=== PATIENT | female | born 1940 | race Caucasian/White ===

== ENCOUNTER 2019-02-19 09:45 | Emergency (ER) | payer MEDICARE, SELFPAY ==
[2019-02-19 09:46] VITALS: BP 160/80; PULSE 82; RESP 14; TEMP 36.4; O2SAT 99
--- NOTE | 2019-02-19 09:57 | DI.RAD.S_ITS ---
PROCEDURE: XR FOOT RT MIN 3V INDICATIONS: fall, pain bottom of right foot and right heel. TECHNIQUE: 3 views of the foot were acquired. COMPARISON: None. FINDINGS: Bones: Subtle radiolucency is present at the proximal fifth metatarsal. No definite cortical disruption visualized. No suspicious bony lesions. Moderate degenerative changes are present at the first MTP joint. A small erosive lesion is present at the distal aspect of the first metatarsal. Soft tissues: No tibiotalar joint effusion. Achilles tendon appears normal. IMPRESSION: 1. Subtle radiolucency at the base of the fifth metatarsal which likely represents a vascular groove or overlying skin fold, although nondisplaced fracture could also be considered in the differential. Please correlate with point tenderness. 2. Degenerative changes at the first MTP joint. Subtle bony erosion may be secondary to subchondral cystic changes or erosive arthritis such as gout. Dictated by: Carlie Rendon M.D. on 02/19/2019 at 9:38 Approved by: Carlie Rendon M.D. on 02/19/2019 at 9:40
[2019-02-19 10:06] VITALS: PULSE 80
--- NOTE | 2019-02-19 11:08 | ED.LOWEXIN ---
HPI - Extremity Injury (Lower) <Katlyn Gomez PA-C - Last Filed: 02/19/19 16:33> General Chief Complaint: Extremity Injury, Lower Stated Complaint: right foot pain / heel pain Time Seen by Provider: 02/19/19 11:06 Source: patient Mode of arrival: wheelchair Limitations: no limitations History of Present Illness HPI Narrative: This 78-year-old female comes to ED secondary to fall from doorway, mainly has pain in her right foot. She states that she was backing out while turning, reaching for a partial, and tripped falling down the 3 steps. She believe she hit her foot, fell on her low back in hit her neck and head on the ground/dirt. She states she did pass out, she thinks briefly as her was on the other side of the RV, and she remembers him talking to her. She states that she did have some nausea initially which is better now after eating and taking her medicines. She denies any vision change. She denies any headache. She has not noted any bumps or wounds on her scalp. She states that she feels somewhat sore all over in her neck and back, does not think any localized pain. She denies any weakness or numbness in her extremities aside from pain/feeling more weak in the right foot where she is hurting. She states pain is much worse with any pressure or trying to walk on the right foot. She denies pain in other joints. She notes that she had another fall a couple of weeks ago and there is a residual bruise under her right eye. She denies any chest pain, dyspnea, other new symptoms prior to this fall today. Related Data Previous Rx's Medication Instructions Recorded hydrocodone-acetaminophen [[place]] 1 tab PO Q6H PRN #10 tab 02/19/19 knee scooter #1 ea 02/19/19 Allergies Allergy/AdvReac Type Severity Reaction Status Date / Time antibiotic- can't remember Allergy Intermediate Hives Uncoded 02/19/19 09:50 name Review of Systems <FLORES Arizmendi Last Filed: 02/19/19 16:33> Review of Systems ROS Unobtainable: All systems reviewed & are unremarkable except as noted in HPI and below PFSH <FLORES Arizmendi Last Filed: 02/19/19 16:33> Medical History (Updated 02/19/19 @ 12:24 by Katlyn Gomez PA-C) Diabetes mellitus type II, non insulin dependent (Chronic) Hyperlipidemia (Chronic) HTN (hypertension) (Chronic) CAD (coronary artery disease) (Chronic) Surgical History (Updated 02/19/19 @ 11:29 by Katlyn Gomez PA-C) History of heart artery stent (Resolved) Status post aorto-coronary artery bypass graft (Resolved) Social History Smoking Status: Never smoker Social History Smoking Status: Never smoker Exam <Katlyn Gomez PA-C - Last Filed: 02/19/19 16:33> Narrative Exam Narrative: GENERAL APPEARANCE: Patient sitting comfortably, in no distress. HEENT: No scalp wound or hematoma, PERRL, EOMI, normal TMs and oropharynx NECK: Supple LUNGS: Clear to auscultation bilaterally. HEART: Rate and rhythm regular without murmur, normal S1 and S2, no S3 or S4. NEUROLOGIC: Alert and oriented, normal speech, and coordination. Sensation grossly intact throughout the extremities MUSCULOSKELETAL: Moderate tenderness over the mid cervical spine as well as throughout the paraspinal musculature bilaterally. Full active cervical spine range of motion. C-collar placed. No tenderness over the thoracolumbar spine. Full range of motion of the upper extremities without tenderness. No tenderness over the hips or lower extremities aside from the right 5th metatarsal base to mid. No tenderness over the toes, able to plantar and dorsiflex against resistance VASCULAR: Bilateral feet are warm and pink with brisk cap refill. Trace edema bilaterally DERMATOLOGIC: Single patch of faded right infraorbital ecchymoses, no ecchymoses or abrasions elsewhere Initial Vital Signs Initial Vital Signs: Vital Signs Temperature 97.5 F L 02/19/19 09:46 Pulse Rate 82 02/19/19 09:46 Respiratory Rate 14 02/19/19 09:46 Blood Pressure 160/80 H 02/19/19 09:46 Pulse Oximetry 99 02/19/19 09:46 <Tonya Handley DO - Last Filed: 02/22/19 09:01> Initial Vital Signs Initial Vital Signs: Vital Signs Temperature 97.5 F L 02/19/19 09:46 Pulse Rate 82 02/19/19 09:46 Respiratory Rate 14 02/19/19 09:46 Blood Pressure 160/80 H 02/19/19 09:46 Pulse Oximetry 99 02/19/19 09:46 Course <FLORES Arizmendi Last Filed: 02/19/19 16:33> Orders Ordered: ED Orders 02/19/19 09:57 XR foot RT min 3V Stat 02/19/19 11:21 CT cervical spine wo con Stat CT head/brain wo con Stat 02/19/19 12:06 Urine Culture Stat Urine Microscopic Stat Vital Signs - 8 hr 02/19/19 09:46 02/19/19 10:06 02/19/19 12:16 Temperature 97.5 F L Pulse Rate 82 88 Pulse Rate [Right Dorsalis Pedis] 80 Respiratory Rate 14 20 Blood Pressure 160/80 H Blood Pressure [Right Arm] 156/75 H Pulse Oximetry 99 98 <Tonya Handley DO - Last Filed: 02/22/19 09:01> Orders Ordered: ED Orders 02/19/19 09:57 XR foot RT min 3V Stat 02/19/19 11:21 CT cervical spine wo con Stat CT head/brain wo con Stat 02/19/19 12:06 Urine Culture Stat Urine Microscopic Stat Vital Signs - 8 hr 02/19/19 09:46 02/19/19 10:06 02/19/19 12:16 Temperature 97.5 F L Pulse Rate 82 88 Pulse Rate [Right Dorsalis Pedis] 80 Respiratory Rate 14 20 Blood Pressure 160/80 H Blood Pressure [Right Arm] 156/75 H Pulse Oximetry 99 98 MDM - Extremity Injury (Lower) <FLORES Arizmendi Last Filed: 02/19/19 16:33> Lab Data Lab Results 02/19/19 Range/Units 12:06 Urine RBC 1-5/hpf (0-5/HPF) Urine WBC 1-5/hpf (0-5/HPF) Ur Squamous Epith Cells 1-5 /hpf (0-5/HPF) Urine Bacteria None seen (None) Ur Culture Indicated? Specimen cultured Urine Dip Bedside Urine Glucose Negative Bedside Urine Bilirubin + 1 Bedside Urine Ketone +/- 5 Urine Specific [place] 1.025 Bedside Urine Occult Blood +/- Bedside Urine pH 6.0 Bedside Urine Protein +++ 300 Bedside Urine Urobilinogen +/- 1mg Bedside Urine Nitrite - Negative Bedside Urine Leukocytes +/- 15 Esterase Imaging Data foot: Radiologist's impression: [address] [address] XRay Report Signed Patient: Woody Crystal#: [id number] : 1Acct:[id number] Age/Sex: 78 / FDate of Service: 02/19/19 Loc: ED Accession Number: [id number] Procedure: XR foot RT min 3V Ordering Provider: Tonya Handley D.O. PROCEDURE: XR FOOT RT MIN 3V INDICATIONS: fall, pain bottom of right foot and right heel. TECHNIQUE: 3 views of the foot were acquired. COMPARISON: None. FINDINGS: Bones: Subtle radiolucency is present at the proximal fifth metatarsal. No definite cortical disruption visualized. No suspicious bony lesions. Moderate degenerative changes are present at the first MTP joint. A small erosive lesion is present at the distal aspect of the first metatarsal. Soft tissues: No tibiotalar joint effusion. Achilles tendon appears normal. IMPRESSION: 1. Subtle radiolucency at the base of the fifth metatarsal which likely represents a vascular groove or overlying skin fold, although nondisplaced fracture could also be considered in the differential. Please correlate with point tenderness. 2. Degenerative changes at the first MTP joint. Subtle bony erosion may be secondary to subchondral cystic changes or erosive arthritis such as gout. Dictated by: Carlie Rendon M.D. on 02/19/2019 at 9:38 Approved by: Carlie Rendon M.D. on 02/19/2019 at 9:40 CT scan - head: Radiologist's impression: [address] [address] [address] Scan Report Signed Patient: Woody Crystal#: [id number] : 1Acct:[id number] Age/Sex: 78 / FDate of Service: 02/19/19 Loc: ED Accession Number: [id number] Procedure: CT head/brain wo con Ordering Provider: Fishfader,Katlyn P.A-C PROCEDURE: CT HEAD/BRAIN WO CON INDICATIONS: fall, LOC, on ASA, plavix TECHNIQUE: Noncontrast 4.5 mm thick angled axial sections acquired from the foramen magnum to the vertex, with coronal and sagittal reformats. For radiation dose reduction, the following was used: automated exposure control, adjustment of mA and/or kV according to patient size. COMPARISON: None. FINDINGS: Image quality: Excellent. CSF spaces: Basal cisterns are patent. No extra-axial fluid collections. The ventricles are symmetric in size and shape. Brain: No intracranial bleeds or masses. Encephalomalacia is present within the left cerebellar hemisphere consistent with prior infarct. A small lacunar infarct is present within the external capsule of the left basal ganglia. There is cerebral volume loss for age, with resultant ventricular and sulcal prominence. There are marked periventricular and deep white matter chronic small vessel ischemic changes. There is intracranial internal carotid artery atherosclerosis. Skull and face: Calvarium and visualized facial bones appear intact, without suspicious lesions. Sinuses: Visualized sinuses and mastoids are clear. IMPRESSION: 1. No acute intracranial findings. 2. 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 Dictated by: Carlie Rendon M.D. on 02/19/2019 at 10:51 Approved by: Calrie Rendon M.D. on 02/19/2019 at 10:57 Csp: Radiologist's impression: [place] [address] CT Scan Report Signed Patient: Woody Crystal#: [id number] : 1Acct:[id number] Age/Sex: 78 / FDate of Service: 02/19/19 Loc: ED Accession Number: [id number] Procedure: CT cervical spine wo con Ordering Provider: Katlyn Gomez P.A-C PROCEDURE: CT CERVICAL SPINE WO CON INDICATIONS: pain, s/p fall TECHNIQUE: Noncontrast 3 mm thick sections acquired from the skull base to the T4 level. Sagittal and coronal reformats were then constructed. For radiation dose reduction, the following was used: automated exposure control, adjustment of mA and/or kV according to patient size. COMPARISON: None. FINDINGS: Image quality: Excellent. Bones: No fractures or dislocations. Visualized superior ribs are intact. Soft tissues: Prevertebral soft tissues are normal in thickness. No paravertebral hematomas. No apical pneumothoraces. Scattered atheromatous calcifications are present within the aortic arch. There is a left hypodense thyroid nodule. IMPRESSION: 1. No acute cervical spine injury. 2. Left thyroid nodule which is incompletely characterized. Nonemergent thyroid ultrasound could be used to further characterize this finding if clinically indicated. Dictated by: Carlie Rendon M.D. on 02/19/2019 at 10:58 Approved by: Carlie Rendon M.D. on 02/19/2019 at 11:00 <Tonya Handley DO - Last Filed: 02/22/19 09:01> Lab Data Lab Results 02/19/19 Range/Units 12:06 Urine RBC 1-5/hpf (0-5/HPF) Urine WBC 1-5/hpf (0-5/HPF) Ur Squamous Epith Cells 1-5 /hpf (0-5/HPF) Urine Bacteria None seen (None) Ur Culture Indicated? Specimen cultured Urine Dip Bedside Urine Glucose Negative Bedside Urine Bilirubin + 1 Bedside Urine Ketone +/- 5 Urine Specific [place] 1.025 Bedside Urine Occult Blood +/- Bedside Urine pH 6.0 Bedside Urine Protein +++ 300 Bedside Urine Urobilinogen +/- 1mg Bedside Urine Nitrite - Negative Bedside Urine Leukocytes +/- 15 Esterase Discharge Plan Departure Patient Disposition: Home Clinical Impression: Metatarsal fracture Qualifiers: Encounter type: initial encounter Metatarsal bone: fifth Fracture type: closed Fracture alignment: nondisplaced Laterality: right Qualified Code(s): S92.354A - Nondisplaced fracture of fifth metatarsal bone, right foot, initial encounter for closed fracture Concussion Qualifiers: Encounter type: initial encounter Loss of consciousness presence/duration: with LOC of 30 min or less Qualified Code(s): S06.0X1A - Concussion with loss of consciousness of 30 minutes or less, initial encounter Discharge Date/Time: 02/19/19 13:12 Interventions: ED Discharge Assessment Last Done: 02/19/19 13:11 Instructions: DI for Concussion, DI for Foot Fracture Activity Restrictions/Additional Instructions: Please rest, elevate your foot. You should not be bearing weight on your foot at all. There was some abnormality on your x-ray, unclear whether there was a fracture, however it is in the area where you have tenderness so I suspect this may be a subtle break in the bone. Since you were not able to use the walking boot, we have wrapped your foot, and you can use a knee scooter since you prefer that over crutches. Do not bear weight on the foot at all, and wearing a stiff-soled shoe when you are out and about in case you do accidentally put weight on it. You should follow-up with a primary care provider here in the next couple of weeks to assess your progress and repeat x-rays to assess healing. I have given you some hydrocodone/acetaminophen to use for pain as needed for the next couple of days (do not drive as this could make you sleepy). And then you can change to Tylenol as needed. You also have a concussion from your head contusion. Your imaging studies did not show any acute injury. Please rest in a quiet environment for the next few days, avoid lots of bright lights/screen time, noisy surroundings, or ?brain work?. You should return to ED as we talked about if you have any acute changes such as severe headache, vomiting, vision change, etc. You should also follow up on your CT scans with your PCP when you return to [place], i.e. to review whether the thyroid nodule noted coincidentally on the scan was new or whether it has been seen in the past on your previous studies. We have given you a copy of all of your radiology studies on CD to take to [place] with you. In the interim, please call the [facility] resource specialist here at [phone], and let them know that you were seen here in the emergency room and need to arrange follow-up for your visit Prescriptions: New hydrocodone-acetaminophen [[place]] 5-325 mg tablet 1 tab PO Q6H PRN (Reason: foot fracture pain) Qty: 10 RF: 0 knee scooter Qty: 1 RF: 0 Referrals: [facility] [Other] <Tonya Handley DO - Last Filed: 02/22/19 09:01> Cosign ED Attending Isatuature Attestation: I was immediately available in the department for consultation. This documentation has been reviewed and I agree with assessment and plan. Supervised by Tonya Handley DO
--- NOTE | 2019-02-19 11:23 | ED_ITS ---
HPI - Extremity Injury (Lower) <FLORES Arizmendi Last Filed: 02/19/19 16:33> General Chief Complaint: Extremity Injury, Lower Stated Complaint: right foot pain / heel pain Time Seen by Provider: 02/19/19 11:06 Source: patient Mode of arrival: wheelchair Limitations: no limitations History of Present Illness HPI Narrative: This 78-year-old female comes to ED secondary to fall from doorway, mainly has pain in her right foot. She states that she was backing out while turning, reaching for a partial, and tripped falling down the 3 steps. She believe she hit her foot, fell on her low back in hit her neck and head on the ground/dirt. She states she did pass out, she thinks briefly as her was on the other side of the RV, and she remembers him talking to her. She stat es that she did have some nausea initially which is better now after eating and taking her medicines. She denies any vision change. She denies any headache. She has not noted any bumps or wounds on her scalp. She states that she feels somewhat sore all over in her neck and back, does not think any localized pain. She denies any weakness or numbness in her extremities aside from pain/feeling m ore weak in the right foot where she is hurting. She states pain is much worse with any pressure or trying to walk on the right foot. She denies pain in other joints. She notes that she had another fall a couple of weeks ago and there is a residual bruise under her right eye. She denies any chest pain, dyspnea, other new symptoms prior to this fall today. Related Data Previous Rx's Medication Instructions Recorded hydrocodone-acetaminophen [[place]] 1 tab PO Q6H PRN #10 tab 02/19/19 knee scooter #1 ea 02/19/19 Allergies Allergy/AdvReac Type Severity Reaction Status Date / Time antibiotic- can't remember Allergy Intermediate Hives Uncoded 02/19/19 09:50 name Review of Systems <FLORES Arizmendi Last Filed: 02/19/19 16:33> Review of Systems ROS Unobtainable: All systems reviewed & are unremarkable except as noted in HPI and below PFSH <FLORES Arizmendi Last Filed: 02/19/19 16:33> Medical History (Updated 02/19/19 @ 12:24 by Katlyn Gomez PA-C) Diabetes mellitus type II, non insulin dependent (Chronic) Hyperlipidemia (Chronic) HTN (hypertension) (Chronic) CAD (coronary artery disease) (Chronic) Surgical History (Updated 02/19/19 @ 11:29 by Katlyn Gomez PA-C) History of heart artery stent (Resolved) Status post aorto-coronary artery bypass graft (Resolved) Social History Smoking Status: Never smoker Social History Smoking Status: Never smoker Exam <Katlyn Gomez PA-C - Last Filed: 02/19/19 16:33> Narrative Exam Narrative: GENERAL APPEARANCE: Patient sitting comfortably, in no distress. HEENT: No scalp wound or hematoma, PERRL, EOMI, normal TMs and oropharynx NECK: Supple LUNGS: Clear to auscultation bilaterally. HEART: Rate and rhythm regular without murmur, normal S1 and S2, no S3 or S4. NEUROLOGIC: Alert and oriented, normal speech, and coordination. Sensation grossly intact throughout the extremities MUSCULOSKELETAL: Moderate tenderness over the mid cervical spine as well as throughout the paraspinal musculature bilaterally. Full active cervical spine range of motion. C-collar placed. No tenderness over the thoracolumbar spine. Full range of motion of the upper extremities without tenderness. No tenderness over the hips or lower extremities aside from the right 5th metatarsal base to mid. No tenderness over the toes, able to plantar and dorsiflex against resistance VASCULAR: Bilateral feet are warm and pink with brisk cap refill. Trace edema bilaterally DERMATOLOGIC: Single patch of faded right infraorbital ecchymoses, no ecchymoses or abrasions elsewhere Initial Vital Signs Initial Vital Signs: Vital Signs Temperature 97.5 F L 02/19/19 09:46 Pulse Rate 82 02/19/19 09:46 Respiratory Rate 14 02/19/19 09:46 Blood Pressure 160/80 H 02/19/19 09:46 Pulse Oximetry 99 02/19/19 09:46 <Tonya Handley DO - Last Filed: 02/22/19 09:01> Initial Vital Signs Initial Vital Signs: Vital Signs Temperature 97.5 F L 02/19/19 09:46 Pulse Rate 82 02/19/19 09:46 Respiratory Rate 14 02/19/19 09:46 Blood Pressure 160/80 H 02/19/19 09:46 Pulse Oximetry 99 02/19/19 09:46 Course <FLORES Arizmendi Last Filed: 02/19/19 16:33> Orders Ordered: ED Orders 02/19/19 09:57 XR foot RT min 3V Stat 02/19/19 11:21 CT cervical spine wo con Stat CT head/brain wo con Stat 02/19/19 12:06 Urine Culture Stat Urine Microscopic Stat Vital Signs - 8 hr 02/19/19 09:46 02/19/19 10:06 02/19/19 12:16 Temperature 97.5 F L Pulse Rate 82 88 Pulse Rate [Right Dorsalis Pedis] 80 Respiratory Rate 14 20 Blood Pressure 160/80 H Blood Pressure [Right Arm] 156/75 H Pulse Oximetry 99 98 <Tonya Handley DO - Last Filed: 02/22/19 09:01> Orders Ordered: ED Orders 02/19/19 09:57 XR foot RT min 3V Stat 02/19/19 11:21 CT cervical spine wo con Stat CT head/brain wo con Stat 02/19/19 12:06 Urine Culture Stat Urine Microscopic Stat Vital Signs - 8 hr 02/19/19 09:46 02/19/19 10:06 02/19/19 12:16 Temperature 97.5 F L Pulse Rate 82 88 Pulse Rate [Right Dorsalis Pedis] 80 Respiratory Rate 14 20 Blood Pressure 160/80 H Blood Pressure [Right Arm] 156/75 H Pulse Oximetry 99 98 MDM - Extremity Injury (Lower) <FLORES Arizmendi Last Filed: 02/19/19 16:33> Lab Data Lab Results 02/19/19 Range/Units 12:06 Urine RBC 1-5/hpf (0-5/HPF) Urine WBC 1-5/hpf (0-5/HPF) Ur Squamous Epith Cells 1-5 /hpf (0-5/HPF) Urine Bacteria None seen (None) Ur Culture Indicated? Specimen cultured Urine Dip Bedside Urine Glucose Negative Bedside Urine Bilirubin + 1 Bedside Urine Ketone +/- 5 Urine Specific [place] 1.025 Bedside Urine Occult Blood +/- Bedside Urine pH 6.0 Bedside Urine Protein +++ 300 Bedside Urine Urobilinogen +/- 1mg Bedside Urine Nitrite - Negative Bedside Urine Leukocytes +/- 15 Esterase Imaging Data foot: Radiologist's impression: [address] [address] XRay Report Signed Patient: Woody Crystal#: [id number] : [id number]:[id number] Age/Sex: 78 / FDate of Service: 02/19/19 Loc: ED Accession Number: [id number] Procedure: XR foot RT min 3V Ordering Provider: Tonya Handley D.O. PROCEDURE: XR FOOT RT MIN 3V INDICATIONS: fall, pain bottom of right foot and right heel. TECHNIQUE: 3 views of the foot were acquired. COMPARISON: None. FINDINGS: Bones: Subtle radiolucency is present at the proximal fifth metatarsal. No definite cortical disruption visualized. No suspicious bony lesions. Moderate degenerative changes are present at the first MTP joint. A small erosive lesion is present at the distal aspect of the first metatarsal. Soft tissues: No tibiotalar joint effusion. Achilles tendon appears normal. IMPRESSION: 1. Subtle radiolucency at the base of the fifth metatarsal which likely represents a vascular groove or overlying skin fold, although nondisplaced fracture could also be considered in the differential. Please correlate with point tenderness. 2. Degenerative changes at the first MTP joint. Subtle bony erosion may be secondary to subchondral cystic changes or erosive arthritis such as gout. Dictated by: Carlie Rendon M.D. on 02/19/2019 at 9:38 Approved by: Carlie Rendon M.D. on 02/19/2019 at 9:40 CT scan - head: Radiologist's impression: [address] [address] [address] Scan Report Signed Patient: Woody Crystal#: [id number] : [id number] Age/Sex: 78 / FDate of Service: 02/19/19 Loc: ED Accession Number: [id number] Procedure: CT head/brain wo con Ordering Provider: Katlyn Gomez P.A-C PROCEDURE: CT HEAD/BRAIN WO CON INDICATIONS: fall, LOC, on ASA, plavix TECHNIQUE: Noncontrast 4.5 mm thick angled axial sections acquired from the foramen magnum to the vertex, with coronal and sagittal reformats. For radiation dose reduction, the following was used: automated exposure control, adjustment of mA and/or kV according to patient size. COMPARISON: None. FINDINGS: Image quality: Excellent. CSF spaces: Basal cisterns are patent. No extra-axial fluid collections. The ventricles are symmetric in size and shape. Brain: No intracranial bleeds or masses. Encephalomalacia is present within the left cerebellar hemisphere consistent with prior infarct. A small lacunar infarct is present within the external capsule of the left basal ganglia. There is cerebral volume loss for age, with resultant ventricular and sulcal prominence. There are marked periventricular and deep white matter chronic small vessel ischemic changes. There is int racranial internal carotid artery atherosclerosis. Skull and face: Calvarium and visualized facial bones appear intact, without suspicious lesions. Sinuses: Visualized sinuses and mastoids are clear. IMPRESSION: 1. No acute intracranial findings. 2. 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 Dictated by: Carlie Rendon M.D. on 02/19/2019 at 10:51 Approved by: Carlie Rendon M.D. on 02/19/2019 at 10:57 Csp: Radiologist's impression: [place] [address] CT Scan Report Signed Patient: Woody Crystal#: [id number] : [id number]:[id number] Age/Sex: 78 / FDate of Service: 02/19/19 Loc: ED Accession Number: [id number] Procedure: CT cervical spine wo con Ordering Provider: Katlyn Gomez P.A-C PROCEDURE: CT CERVICAL SPINE WO CON INDICATIONS: pain, s/p fall TECHNIQUE: Noncontrast 3 mm thick sections acquired from the skull base to the T4 level. Sagittal and coronal reformats were then constructed. For radiation dose reduction, the following was used: automated exposure control, adjustment of mA and/or kV according to patient size. COMPARISON: None. FINDINGS: Image quality: Excellent. Bones: No fractures or dislocations. Visualized superior ribs are intact. Soft tissues: Prevertebral soft tissues are normal in thickness. No paravertebral hematomas. No apical pneumothoraces. Scattered atheromatous calcifications are present within the aortic arch. There is a left hypodense thyroid nodule. IMPRESSION: 1. No acute cervical spine injury. 2. Left thyroid nodule which is incompletely characterized. Nonemergent thyroid ultrasound could be used to further characterize this finding if clinically indicated. Dictated by: Carlie Rendon M.D. on 02/19/2019 at 10:58 Approved by: Carlie Rendon M.D. on 02/19/2019 at 11:00 <Tonya Handley DO - Last Filed: 02/22/19 09:01> Lab Data Lab Results 02/19/19 Range/Units 12:06 Urine RBC 1-5/hpf (0-5/HPF) Urine WBC 1-5/hpf (0-5/HPF) Ur Squamous Epith Cells 1-5 /hpf (0-5/HPF) Urine Bacteria None seen (None) Ur Culture Indicated? Specimen cultured Urine Dip Bedside Urine Glucose Negative Bedside Urine Bilirubin + 1 Bedside Urine Ketone +/- 5 Urine Specific [place] 1.025 Bedside Urine Occult Blood +/- Bedside Urine pH 6.0 Bedside Urine Protein +++ 300 Bedside Urine Urobilinogen +/- 1mg Bedside Urine Nitrite - Negative Bedside Urine Leukocytes +/- 15 Esterase Discharge Plan Departure Patient Disposition: Home Clinical Impression: Metatarsal fracture Qualifiers: Encounter type: initial encounter Metatarsal bone: fifth Fracture type: closed Fracture alignment: nondisplaced Laterality: right Qualified Code(s): S92.354A - Nondisplaced fracture of fifth metatarsal bone, right foot, initial encounter for closed fracture Concussion Qualifiers: Encounter type: initial encounter Loss of consciousness presence/duration: with LOC of 30 min or less Qualified Code(s): S06.0X1A - Concussion with loss of consciousness of 30 minutes or less, initial encounter Discharge Date/Time: 02/19/19 13:12 Interventions: ED Discharge Assessment Last Done: 02/19/19 13:11 Instructions: DI for Concussion, DI for Foot Fracture Activity Restrictions/Additional Instructions: Please rest, elevate your foot. You should not be bearing weight on your foot at all. There was some abnormality on your x-ray, unclear whether there was a fracture, however it is in the area where you have tenderness so I suspect this may be a subtle break in the bone. Since you were not able to use the walking boot, we have wrapped your foot, and you can use a knee scooter since you prefer that over crutches. Do not bear weight on the foot at all, and wearing a stiff- soled shoe when you are out and about in case you do accidentally put weight on it. You should follow-up with a primary care provider here in the next couple of weeks to assess your progress and repeat x-rays to assess healing. I have given you some hydrocodone/acetaminophen to use for pain as needed for the next couple of days (do not drive as this could make you sleepy). And then you can change to Tylenol as needed. You also have a concussion from your head contusion. Your imaging studies did not show any acute injury. Please rest in a quiet environment for the next few days, avoid lots of bright lights/screen time, noisy surroundings, or ?brain work?. You should return to ED as we talked about if you have any acute changes such as severe headache, vomiting, vision change, etc. You should also follow up on your CT scans with your PCP when you return to [place], i.e. to review whether the thyroid nodule noted coincidentally on the scan was new or whether it has been seen in the past on your previous studies. We have given you a copy of all of your radiology studies on CD to take to [place] with you. In the interim, please call the [facility] health human resources associate here at [phone], and let them know that you were seen here in the emergency room and need to arrange follow-up for your visit Prescriptions: New hydrocodone-acetaminophen [[place]] 5-325 mg tablet 1 tab PO Q6H PRN (Reason: foot fracture pain) Qty: 10 RF: 0 knee scooter Qty: 1 RF: 0 Referrals: [facility] [Other] <Tonya Handley DO - Last Filed: 02/22/19 09:01> Cosign ED Attending Isatuature Attestation: I was immediately available in the department for consultation. This documentation has been reviewed and I agree with assessment and plan. Supervised by Tonya Handley DO
[2019-02-19 12:16] VITALS: BP 156/75; PULSE 88; RESP 20; O2SAT 98
[2019-02-19 12:45] LABS: Bacteria Urine None Seen; Culture Indicated Urine Specimen Cultured; RBC Urine 1-5/HPF (0-5/HPF); Squamous Epithelial Cell Urine 1-5 /HPF (0-5/HPF); WBC Urine 1-5/HPF (0-5/HPF)
--- NOTE | 2019-02-19 13:10 | PC.NURSE ---
Pt refused crutches and walking boot. Verbalized understanding of and return demonstration of walker use, aware of non weight bearing status.
== END 2019-02-19 13:12 | disposition home or self-care (01) ==
PROVIDERS: Emergency Provider Internal Medicine
DX: S92.354A Nondisplaced fracture of fifth metatarsal bone, right foot, initial encounter for closed fracture (principal); S06.0X1A Concussion with loss of consciousness of 30 minutes or less, initial encounter; W10.8XXA Fall (on) (from) other stairs and steps, initial encounter
CPT/HCPCS: 70450; 72125; 73630; 81003; 81015; 87086; 99283; 99284